=== PATIENT | female | born 1970 | race Caucasian/White ===

== ENCOUNTER 2020-12-31 18:19 | Emergency (ER) | payer OTHER ==
[~2020-12-31] VITALS: Ht 157.5 cm; Wt 64.5 kg
--- NOTE | 2020-12-31 18:42 | PHYS DOC ---
Adult General Chief Complaint Chief Complaint: PAIN ON URINATION HPI HPI Patient is a 50-year-old female who presents with a chief complaint of 1 to 2 days of dysuria and left-sided flank pain with nausea no vomiting. States that the pain is approximately 5 out of 10, sharp in nature with some radiation between her left lower back and groin. Denies any recent traumas, travels, fevers, chest pain, shortness of breath, other abdominal pain, vomiting, hematuria, diarrhea, Covid/flu/cold symptoms or known ill contacts. Review of Systems Review of Systems Review of systems otherwise unremarkable except noted in HPI Physical Exam Physical Exam Constitutional: Well developed, well nourished, no acute distress, non-toxic a ppearance. [] HENT: Normocephalic, atraumatic, bilateral external ears normal, oropharynx moist, no oral exudates, nose normal. [] Eyes: conjunctiva normal, no discharge. [] Neck: Normal range of motion, no tenderness, supple, no stridor. [] Cardiovascular:Heart rate regular rhythm, no murmur [] Lungs & Thorax: No respiratory distress Abdomen: soft, no tenderness, no masses, no pulsatile masses. [] Skin: Warm, dry, no erythema, no rash. [] Back: No tenderness, no CVA tenderness. [] Extremities: No tenderness, no cyanosis, no clubbing, ROM intact, no edema. [] Neurologic: Alert and oriented X 3, no focal deficits noted. [] Psychologic: Affect normal, judgement normal, mood normal. [] EKG EKG EKG with a rate of 58, QRS of 88, QTC of 398, no STEMI peer [] Radiology/Procedures Radiology/Procedures [] PQRS Compliance Statement: One or more of the following individualized dose reduction techniques were utilized for this examination: 1. Automated exposure control 2. Adjustment of the mA and/or kV according to patient size 3. Use of iterative reconstruction technique CT abdomen/pelvis without contrast 12/31/2020 7:00 PM INDICATION: Left flank pain COMPARISON: None available TECHNIQUE: Multiple axial CT images of the abdomen and pelvis were obtained without intravenous contrast. Coronal and sagittal reformats are provided. FINDINGS: Lung bases are clear. Heart size within normal limits. Evaluation of solid abdominal viscera is limited by lack of intravenous contrast. Liver, spleen, adrenal glands and pancreas are normal in appearance. Cholelithiasis. Numerous gravel-like gallstones are identified. The abdominal aorta is normal in course and caliber. There are no pathologically enlarged lymph nodes in the abdomen and pelvis. There is no abdominal free fluid. There is no free intraperitoneal air. Small and large bowel are normal in caliber. There is no evidence for bowel obstruction. There are no pericolonic inflammatory changes. A normal, nondilated appendix is visualized without adjacent inflammatory changes. There is a 2 mm nonobstructing calculus in the inferior pole left kidney. There is a 5 mm calculus at the left ureterovesicular junction. Mild hypoattenuation identified within urinary bladder. Correlate with hematuria. Uterus and adnexa are normal by CT. Trace fluid identified within the right adnexa, likely physiologic. No suspicious osseous abnormality is identified. IMPRESSION: 1. There is a 5 mm calculus at the left ureterovesicular junction resulting in mild to moderate left hydroureteronephrosis. There is an additional nonobstructing calculus in inferior pole the left kidney measuring 2 mm. 2. High attenuation within urinary bladder could reflect hematuria. 3. Cholelithiasis without adjacent formation. IMPRESSION: Call phthisis Electronically signed by: Anabelle Yin MD (12/31/2020 7:21 PM) [facility] Heart Score C/O Chest Pain: No Risk Factors: Risk Factors: DM, Current or recent (<one month) smoker, HTN, HLP, family history of CAD, obesity. Risk Scores: Risk Factors: DM, Current or recent (<one month) smoker, HTN, HLP, family history of CAD, obesity. Course & Med Decision Making Course & Med Decision Making Patient is a 50-year-old female presents with left-sided flank pain, dysuria and nausea for 1 to 2 days Vital signs not concerning. Physical exam noted above. Patient given morphine for pain. No leukocytosis, creatinine normal, no fever, no tachycardia. CT notable for a 5 mm stone at the UV J with mild to moderate left hydroureteronephrosis. Notable also for cholelithiasis. Given patient further pain medication including Flomax in the ED. No need for antibiotics. Given urine strainer. Given pain medication for home. Given instructions on watchful waiting and discussed stones and need for follow-up. Advised to follow-up with primary care physician first thing Saturday morning to discuss ED visit, and pain management. Advised to discuss need for urology consult with primary care physician if needed. Gave return precautions to the ED. Patient grateful, verbalized understanding and agreed to plan of discharge. [] Dragon Disclaimer Dragon Disclaimer This electronic medical record was generated, in whole or in part, using a voice recognition dictation system. Departure Departure: Impression: Primary Impression: Ureterolithiasis Additional Impression: Hydronephrosis with ureteral calculus Disposition: HOME / SELF CARE / HOMELESS Condition: GOOD Referrals: MINAL QUEZADA MD Patient Instructions: Diet for Kidney Stones, Kidney Stones Additional Instructions: Please read all the attached information very carefully. He had a 5 mm stone at the junction of your ureter and bladder. You can expect a little pain over the next few days as it passes into your bladder and then eventually passes out your ureter into your urine. Please strain your urine as discussed. You are given pain medication and Flomax. Please take all these as prescribed. You can add ibuprofen daily as well as this can help with inflammation and pain. Please follow-up Saturday, first thing with your primary care physician to discuss your ED visit and set up a follow-up as soon as possible. Please also discuss with him the need for urology consult. Please come back to the emergency department immediately with new or concerning symptoms as discussed. Scripts Hydrocodone Bit/Acetaminophen (HYDROCODONE-APAP 5-325 ) 1 Each Tablet 1 TAB PO PRN Q6HRS PRN for kidney stone for 5 Days, #20 TAB 0 Refills Prov: KAREN KEENAN MD 12/31/20 Problem Qualifiers KAREN KEENAN MD December 31, 2020 18:41
[2020-12-31] MEDS ORDERED: MORPHINE SULFATE 4 MG/ML DISP.SYRIN. IV ONE (18:45)
[2020-12-31 19:03] LABS: HEMATOCRIT 41.9 % (36.0-47.0); RED BLOOD COUNT 4.79 x10^6/uL (3.50-5.40); RED CELL DISTRIBUTION WIDTH 13.4 % (11.5-14.5); WHITE BLOOD COUNT 6.5 x10^3/uL (4.0-11.0)
[2020-12-31 19:09] LABS: CALCIUM 9.2 mg/dL (8.5-10.1); GFR 58.5
[2020-12-31 19:12] LABS: POTASSIUM 4.1 mmol/L (3.5-5.1)
--- NOTE | 2020-12-31 19:24 | RAD ---
PQRS Compliance Statement: One or more of the following individualized dose reduction techniques were utilized for this examinat ion: 1. Automated exposure control 2. Adjustment of the mA and/or kV according to patient size 3. Use of iterative reconstruction technique CT abdomen/pelvis without contrast 12/31/2020 7:00 PM INDICATION: Left flank pain COMPARISON: None available TECHNIQUE: Multiple axial CT images of the abdomen and pelvis were obtained without intravenous contr ast. Coronal and sagittal reformats are provided. FINDINGS: Lung bases are clear. Heart size within normal limits. Evaluation of solid abdominal viscera is limit ed by lack of intravenous contrast. Liver, spleen, adrenal glands and pancreas are normal in appearan ce. Cholelithiasis. Numerous gravel-like gallstones are identified. The abdominal aorta is normal in course and caliber. There are no pathologically enlarged lymph nodes in the abdomen and pelvis. There is no abdominal free fluid. There is no free intraperitoneal air. Small and large bowel are normal i n caliber. There is no evidence for bowel obstruction. There are no pericolonic inflammatory changes. A normal, nondilated appendix is visualized without adjacent inflammatory changes. There is a 2 mm n onobstructing calculus in the inferior pole left kidney. There is a 5 mm calculus at the left uretero vesicular junction. Mild hypoattenuation identified within urinary bladder. Correlate with hematuria. Uterus and adnexa are normal by CT. Trace fluid identified within the right adnexa, likely physiolog ic. No suspicious osseous abnormality is identified. IMPRESSION: 1. There is a 5 mm calculus at the left ureterovesicular junction resulting in mild to moderate left hydroureteronephrosis. There is an additional nonobstructing calculus in inferior pole the left kidne y measuring 2 mm. 2. High attenuation within urinary bladder could reflect hematuria. 3. Cholelithiasis without adjacent formation. IMPRESSION: Call phthisis Electronically signed by: Anabelle Yin MD (12/31/2020 7:21 PM) [facility]
[2020-12-31] MEDS ORDERED: TAMSULOSIN 0.4 MG CAP.ER.24H. PO ONE (19:30)
[2020-12-31] MEDS ORDERED: KETOROLAC 15 MG/ML VIAL. IVP ONE (19:30)
[2020-12-31] MEDS ORDERED: HYDROcodone/APAP 5/325MG 1 TAB TABLET PO ONE (19:30)
[2020-12-31] MEDS ORDERED: HYDR-2155 PO (19:32)
[2020-12-31 19:40] VITALS: BP 141/81
--- NOTE | 2021-01-01 13:50 | EKG ---
[address] [address] Test Date: 2020-12-31 Test Time: 18:45:17 Pat Name: HILDA SEALS Department: Room: Gender: F Comprehensive Advisor: JOSEFA : [id number] Requested By: KAREN KEENAN Order Number: [id number] Reading MD: Measurements Intervals Thermal Rate: 58 P: 67 CO: 164 QRS: 80 QRSD: 88 T: 74 QT: 402 QTc: 398 Interpretive Statements SINUS RHYTHM OTHERWISE NORMAL ECG RI6.02 No previous ECG available for comparison
== END 2020-12-31 19:54 | disposition home or self-care (01) ==
LOC: ER 18:19
DX: N13.30 Unspecified hydronephrosis (principal); N20.1 Calculus of ureter
CPT/HCPCS: 36415; 74176; 80048; 84484; 85027; 93005; 96374; 96375; 99284; J1885; J2270